=== PATIENT | female | born 1985 | race Caucasian/White ===

== ENCOUNTER 2019-10-20 09:37 | Inpatient (IN) ==
[2019-10-20] MEDS ORDERED: Lactated Ringers 1000 ml BAG 1,000 ML IV ONE (11:22)
[2019-10-20] MEDS ORDERED: OBEPIDURAL 250 ML EPIDURAL ONE (11:30)
[2019-10-20 11:37] LABS: Hematocrit 37 % (35-47); Hemoglobin 12.7 g/dL (12.0-16.0); Mean Corpuscular HGB Conc 34 g/dL (31-36); Mean Corpuscular Hemoglobin 32 pg (27-31); Mean Corpuscular Volume 92 fL (80-97); Mean Platelet Volume 9.9 fL (7.4-10.4); Platelet Count 134 10^3/uL (150-450); Red Blood Count 4.04 10^6 /uL (3.70-4.87); Red Cell Distribution Width 13 % (10-15); White Blood Count 10.2 10^3/uL (3.5-10.8)
[2019-10-20 11:53] LABS: Urine Benzodiazepine Screen None Detected (None Detect); Urine Opiates Screen None Detected (None Detect)
[2019-10-20] MEDS ORDERED: OBEPIDURAL 250 ML EPIDURAL SCH (12:00)
[2019-10-20] MEDS ORDERED: Lactated Ringers 1000 ml BAG 1,000 ML IV SCH ×2 (12:00→19:00)
[2019-10-20] MEDS ORDERED: Oxytocin in LR 20 UNITS/1,000 ML BAG IVPB SCH (17:00)
[2019-10-20] MEDS ORDERED: Witch Hazel PAD JAR TOPICAL PRN (18:12)
[2019-10-20] MEDS ORDERED: Glycerin ADULT 2.4 gm SUPP PR PRN (18:12)
[2019-10-20] MEDS ORDERED: Dibucaine 1% OINT 28.35 GM TUBE PR PRN (18:12)
[2019-10-21 05:56] LABS: ABS Basophils 0.1 10^3/ul (0-0.2); ABS Eosinophils 0.2 10^3/ul (0-0.6); ABS Lymphocytes 2.8 10^3/ul (1.0-4.8); Eosinophil % 1.5 %; Hematocrit 29 % (35-47); Hemoglobin 10.5 g/dL (12.0-16.0); Lymphocyte % 26.8 %; Mean Corpuscular HGB Conc 36 g/dL (31-36); Mean Corpuscular Hemoglobin 33 pg (27-31); Mean Corpuscular Volume 91 fL (80-97); Mean Platelet Volume 9.1 fL (7.4-10.4); Platelet Count 123 10^3/uL (150-450); Red Cell Distribution Width 13 % (10-15); White Blood Count 10.6 10^3/uL (3.5-10.8)
[2019-10-21 15:50] VITALS: BP 112/63
== END 2019-10-21 20:16 | disposition home or self-care (01) | DRG 560 ==
LOC: MCHOBOUT 09:37 → MCHOB 11:11
PROVIDERS: ADMIT Obstetrics & Gynecology; ATTEND Obstetrics & Gynecology